=== PATIENT | female | born 1970 | race Caucasian/White ===

== ENCOUNTER 2019-07-01 11:44 | Emergency (ER) | payer BC ==
[~2019-07-01] VITALS: Ht 167.6 cm; Wt 70.3 kg
[2019-07-01 12:32] LABS: Basophils # (auto) 0.1 uL; Basophils % (auto) 1.2 % (0.0-2.0); Eosinophils # (auto) 0.1 uL; Hematocrit 45.2 % (36.0-46.0); Hemoglobin 15.1 g/dL (12.2-16.2); Lymphocytes # (auto) 1.9 uL; Lymphocytes % (auto) 34.4 % (10.0-50.0); Mean Corpuscular Hemoglobin 29.7 pg (28.0-32.0); Mean Corpuscular Hgb Conc. 33.4 g/dL (32.0-36.0); Mean Corpuscular Volume 88.7 fL (80.0-100.0); Monocytes # (auto) 0.3 uL; Monocytes % (auto) 5.4 % (0.0-12.0); Neutrophils # (auto) 3.2 uL; Platelet Count (auto) 311 10^3/uL (140-450); Red Blood Cells 5.09 10^6/uL (4.0-5.20); Red Cell Distribution Width 13.7 % (11.8-14.3); White Blood Cell 5.5 10^3/uL (4.4-10.8)
[2019-07-01 13:22] LABS: Albumin 4.2 g/dL (3.4-5.0); BUN/Creatinine Ratio 11.5; Potassium 3.6 mmol/L (3.5-5.1)
[2019-07-01 13:24] LABS: Bilirubin, Total 0.4 mg/dL (0.2-1.0); Total Protein 7.8 g/dL (6.4-8.2)
[2019-07-01] MEDS ORDERED: ONDANSETRON HCL 4 MG/2 ML VIAL IV ONE (14:00)
[2019-07-01] MEDS ORDERED: KETOROLAC TROMETH 30 MG/ML 1ML VIAL IV ONE (14:00)
[2019-07-01] MEDS ORDERED: SODIUM CHLORIDE 0.9% 1,000 ML IV ONE (14:00)
[2019-07-01] MEDS ORDERED: cefTRIAXone 1GM/50ML D5W 50 ML IV ONE (14:15)
[2019-07-01 14:42] VITALS: BP 121/68
== END 2019-07-01 15:33 | disposition home or self-care (01) ==
LOC: ER 11:44
DX: K52.9 Noninfective gastroenteritis and colitis, unspecified (principal); N39.0 Urinary tract infection, site not specified; K76.0 Fatty (change of) liver, not elsewhere classified; F12.10 Cannabis abuse, uncomplicated; Z88.2 Allergy status to sulfonamides
CPT/HCPCS: 36415; 74176; 80053; 82962; 85025; 96365; 96375; 99284; J0696; J1885; J2405; J7030

== ENCOUNTER 2021-07-19 06:05 | Emergency (ER) | payer BC, OTHER ==
[~2021-07-19] VITALS: Ht 167.6 cm; Wt 70.3 kg
[2021-07-19] MEDS ORDERED: KETOROLAC TROMETH 60MG/2ML VIAL IM ONE (07:15)
[2021-07-19 07:37] VITALS: BP 120/75
== END 2021-07-19 08:14 | disposition home or self-care (01) ==
LOC: ER 06:05
DX: S39.012A Strain of muscle, fascia and tendon of lower back, initial encounter (principal); M54.41 Lumbago with sciatica, right side; F41.9 Anxiety disorder, unspecified; F32.9 Major depressive disorder, single episode, unspecified; Z88.2 Allergy status to sulfonamides; X58.XXXA Exposure to other specified factors, initial encounter; Y93.89 Activity, other specified; Y92.89 Other specified places as the place of occurrence of the external cause; Y99.8 Other external cause status
CPT/HCPCS: 72100; 96372; 99283; J1885